=== PATIENT | female | born 1980 | race Caucasian/White ===

== ENCOUNTER 2017-04-12 12:17 | Outpatient (CLI) | payer BC ==
--- NOTE | 2017-04-12 13:44 | RAD ---
THREE VIEWS RIGHT SHOULDER: Date: 04-12-17 History: Right shoulder pain for a couple of days. FINDINGS: There is no evidence of fracture, dislocation, or other osseous abnormality involving the right shoul shellie. IMPRESSION: No acute osseous abnormality. POS: [facility]ALE[facility]
--- NOTE | 2017-04-12 14:39 | RAD ---
FIVE VIEWS CERVICAL SPINE: Date: 04-12-17 History: Neck and shoulder pain. Patient reports neck is stiff. Patient said she woke up this way th ree days ago. FINDINGS: C1 and cervicothoracic junction is seen on the lateral view. There is straightening of the normal cer vical lordotic curvature. The vertebral body heights and intervertebral disc spaces are within normal limits. No fracture or subluxation is seen involving the cervical spine. The prevertebral soft tissu es are within normal limits. There is no abnormal translation of motion seen between the flexion and extension views. The odontoid is obscured on the odontoid view but has a normal appearance on the lat eral projection. IMPRESSION: 1. No fracture or subluxation involving the cervical spine. 2. Straightening of the normal cervical lordotic curvature which may be related to muscle spasm or po sitioning. POS: [facility]Y
== END 2017-04-12 12:18 | disposition home or self-care (01) ==
LOC: SCSRAD 12:17
PROVIDERS: ATTEND Family Medicine
DX: M54.12 Radiculopathy, cervical region (principal); M25.511 Pain in right shoulder; M43.8X2 Other specified deforming dorsopathies, cervical region
CPT/HCPCS: 72050

== ENCOUNTER 2017-04-19 08:15 | Outpatient (CLI) | payer BC ==
--- NOTE | 2017-04-19 11:10 | MRI ---
MRI CERVICAL SPINE NONCONTRAST: Date: 04/19/17 HISTORY: 36-year-old female with cervical radiculopathy, M54.12. Right cervicalgia radiating to right upper ex tremity. COMPARISON: None. FINDINGS: No Chiari I malformation. Cervical spinal cord is normal in size and signal. Vertebral body heights a re maintained. No high grade degenerative facet changes or high grade disc space narrowing at any lev el. Perivertebral spaces are normal. C1-2: Normal. C2-3: Normal. C3-4: Normal. C4-5: Normal. C5-6: Shallow, broad-based disc herniation or disc-osteophyte complex abuts the ventral surface of t he spinal cord. This is slightly asymmetrically larger on the right paracentral aspect. This results in moderate central spinal canal stenosis. No neural foraminal stenosis. C6-7: Broad-based disc herniation or disc-osteophyte complex, similar to the one at the level superi or to this but larger, mildly indenting the spinal cord. Minimally thickened ligamentum flavum minima lly indents the dorsal surface of the spinal cord. Overall result is moderate to severe central spina l canal stenosis. No neural foraminal stenosis. C7-T1: Normal. IMPRESSION: 1. Shallow, broad based disc herniations (or disc-osteophyte complexes), asymmetrically slightly lar sallie on the right paracentral side than left, at C5-6 and C6-7. The one at C6-7 is larger and indents the spinal cord. 2. All other levels are normal. POS: CET
== END 2017-04-19 08:16 | disposition home or self-care (01) ==
LOC: TBSIIMAG 08:15
PROVIDERS: ATTEND Neurological Surgery
DX: M54.12 Radiculopathy, cervical region (principal); M50.223 Other cervical disc displacement at C6-C7 level
CPT/HCPCS: 72141

== ENCOUNTER 2024-11-24 07:48 | Outpatient (CLI) | payer OTHER | END 2024-11-24 07:49 | disposition home or self-care (01) | LOC: BICCT 07:48 | PROVIDERS: ATTEND Family Medicine | DX: Z13.6 Encounter for screening for cardiovascular disorders (principal); E78.2 Mixed hyperlipidemia; Z82.49 Family history of ischemic heart disease and other diseases of the circulatory system | CPT/HCPCS: 75571 ==